=== PATIENT | female | born 2005 | race Caucasian/White ===

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

== ENCOUNTER 2025-03-23 21:20 | Outpatient (CLI) | payer BC, OTHER ==
[2025-03-23 21:46] LABS: Appearance,Urine Cloudy (Clear); Bacteria,Urine Few /hpf; Bilirubin,Urine Negative (Negative); Blood,Urine Negative (Negative); Color,Urine Colorless; Glucose,Urine (UA) Negative (Negative); Ketones,Urine Negative (Negative); Leukocyte Esterase,Urine Small (Negative); Nitrite,Urine Negative (Negative); PH, Urine 6.5 (5.0-8.0); Protein,Urine Negative (Negative); RBC,Urine 1 /hpf (0-5); Specific Gravity,Urine 1.009 (1.001-1.035); Squamous Epithelial Cell,Urine 1 /hpf (0-4); Urobilinogen,Urine <2.0 mg/dL (<2.0); WBC,Urine 3 /hpf (0-5)
[2025-03-23 22:39] VITALS: BP 113/57; PULSE 86; RESP 16
--- NOTE | 2025-03-28 11:26 | P.MSEPDOC ---
Presenting Problems - Arrival Data Date of Arrival on Unit: 03/23/25 Time of Arrival on Unit: 21:20 Mode of Transport: Wheelchair - Complaint OB-Reason for Admission/Chief Complaint: Pain Comment: Pt presents wto triage with c/o cramping and tightening for the past week but increasing today. Also c/o pelvic pressure 9/10 when she feels the cramping. Pt states she feels the cramping a few times an hour. Medical History - Information : 1 Para: 0 Term: 0 : 0 Abortions: Spontaneous or Elective: 0 Number of Living Children: 0 - Gestational Age Gestational Age by BERTIN (wks/days): 33 Weeks and 3 Days Review of Systems - Review of Systems Constitutional: No problems Breast: No problems ENT: No problems Cardiovascular: No problems Respiratory: No problems Gastrointestinal: No problems Genitourinary: No problems Musculoskeletal: No problems Neurological: No problems Skin: No problems Vital Signs - Pulse Pulse Oximetery Pulse Rate: 86 Pulse Assessment Method: Automatic Cuff - Respirations Respiratory Rate: 16 Oxygen Delivery Method: Room Air - Blood Pressure Right Arm Blood Pressure: 113/57 Blood Pressure Mean: 75 Medical Screen Scoring - Assessment - Baby A Baseline FHR: 135 Heart Rate - NICHD Category: Category I (Normal) NST: Reactive Physician Notification - Physician Notified Physician Notified Date: 03/23/25 Physician Notified Time: 21:44 Physician: colten New Order Received: Yes - Notification Comment Comment: Spoke with Dr. Herman, Pt [address] weeks [address] Small. Presents with cramping and pelvic pain for a week that has increased today. NST reactive, no cx traced but states she has felt a few since arrived here.UA was sent. Order to check cervix while awaiting UA results. Dr. Painter in unit. Reviewed tracing, discussed SVE, pt feeling cramping 8-10 min apart, no cx palpated. Reviewed UA results. Orders recieved to d/c pt home. She has an appoin tment next friday 03/30, states it is reasonable for the pt to try and move appointment up to this week if possible Maternal Triage Index - Maternal Triage Index Presenting for scheduled procedure w/no complaint: No - Stat/Priority 1 Stat Priority 1: No - Urgent/Priority 2 Urgent Priority 2: No - Prompt/Priority 3 Prompt Priority 3: Yes Criteria Met for Priority 3: Pt presents wto triage with c/o cramping and tightening for the past week but increasing today. Also c/o pelvic pressure 9/10 when she feels the cramping. Pt states she feels the cramping a few times an hour. Disposition - Disposition OB Disposition: Discharge to home Discharge Date: 03/23/25 Discharge Time: 22:30 I agree with the RN Medical Screening Exam: Yes Physician's MSE Comment: I have neither seen nor examined the patient. Case reviewed; plan agreed upon as documented in EMR&OBIX.: Yes Diagnosis: RELATED CONDITIONS, UNSPECIFIED, THIRD TRIMESTER
== END 2025-03-23 22:30 | disposition home or self-care (01) ==
LOC: FBPOP 21:20
PROVIDERS: ATTEND Obstetrics & Gynecology
DX: O26.893 Other specified pregnancy related conditions, third trimester (principal); Z3A.33 33 weeks gestation of pregnancy
CPT/HCPCS: 59025; 81001; 99213

== ENCOUNTER 2025-04-09 17:28 | Outpatient (CLI) | payer BC, OTHER ==
[2025-04-09 18:52] VITALS: BP 113/59; PULSE 87; RESP 16; TEMP 97.1
--- NOTE | 2025-04-18 11:46 | P.MSEPDOC ---
Presenting Problems - Arrival Data Date of Arrival on Unit: 04/09/25 Time of Arrival on Unit: 18:30 Mode of Transport: Ambulatory - Complaint OB-Reason for Admission/Chief Complaint: Pain Medical History - Information : 1 Para: 0 Number of Living Children: 0 - Gestational Age Gestational Age by BERTIN (wks/days): 35 Weeks and 6 Days Review of Systems - Review of Systems Constitutional: No problems Breast: No problems ENT: No problems Cardiovascular: No problems Respiratory: No problems Gastrointestinal: No problems Genitourinary: No problems Musculoskeletal: No problems Neurological: No problems Skin: No problems Vital Signs - Temperature Temperature: 97.1 F Temperature Source: Axillary - Pulse Right Sitting Pulse Rate: 87 Pulse Assessment Method: Automatic Cuff - Respirations Respiratory Rate: 16 Oxygen Delivery Method: Room Air O2 Sat by Pulse Oximetry: 98 - Blood Pressure Right Arm Sitting Blood Pressure: 113/59 Blood Pressure Mean: 77 Blood Pressure Source: Automatic Cuff Medical Screen Scoring - Assessment - Baby A Baseline FHR: 135 Heart Rate - NICHD Category: Category I (Normal) NST: Reactive Physician Notification - Physician Notified Physician Notified Date: 04/09/25 Physician Notified Time: 18:20 Physician: Dominick Enamorado Order Received: Yes Maternal Triage Index - Maternal Triage Index Presenting for scheduled procedure w/no complaint: No - Stat/Priority 1 Stat Priority 1: No - Urgent/Priority 2 Urgent Priority 2: No - Prompt/Priority 3 Prompt Priority 3: No - Non-Urgent/Priority 4 Non-Urgent Priority 4: Yes Criteria Met for Priority 4: pain Disposition - Disposition OB Disposition: Physician follow up in office Discharge Date: 04/09/25 Discharge Time: 18:30 I agree with the RN Medical Screening Exam: Yes Physician's MSE Comment: I have neither seen nor examined to the patient. Case reviewed; plan agreed upon as documented in EMR&OBIX.: Yes Diagnosis: RELATED CONDITIONS, UNSPECIFIED, THIRD TRIMESTER
== END 2025-04-09 18:40 | disposition home or self-care (01) ==
LOC: FBPOP 17:28
PROVIDERS: ATTEND Obstetrics & Gynecology
DX: O26.893 Other specified pregnancy related conditions, third trimester (principal); R52 Pain, unspecified; Z3A.35 35 weeks gestation of pregnancy
CPT/HCPCS: 59025; 99213

== ENCOUNTER → 2025-04-27 | Outpatient (CLI) | payer BC ==
[2025-04-27 18:28] LABS: Basophils # (A) 0.04 X 10*3/uL (0.00-0.10); Basophils % (A) 0.8 %; Eosinophils % (A) 1.9 %; HCT 42.7 % (37.2-46.3); Lymphocytes # (A) 2.12 X 10*3/uL (0.90-5.00); Lymphocytes % (A) 39.8 %; MCH 24.7 pg (27.0-32.0); MCHC 30.4 g/dL (32.0-37.0); Mean Platelet Volume 10.5 FL (9.5-12.2); Monocytes # (A) 0.46 X 10*3/uL (0.20-1.00); Monocytes % (A) 8.6 %; NRBC Per 100 WBC 0 X 10*3/uL (0.00-0.01); Neutrophils # (A) 2.59 X 10*3/uL (1.80-7.70); Neutrophils % (A) 48.7 %; Platelet Count 274 X 10*3/uL (140-440); RBC 5.27 X 10*6/uL (4.10-5.20); RDW 14.4 % (11.5-14.5); WBC 5.32 X 10*3/uL (4.50-10.00)
[2025-04-27 18:58] LABS: ALT 14 U/L (8-44); AST 15 U/L (13-35); Albumin 4.4 g/dL (3.8-4.9); Albumin/Globulin Ratio 1.83 Ratio (1.60-3.17); Alkaline Phosphatase 115 U/L (41-126); BUN/Creat Ratio 11.75 Ratio (12.00-20.00); Blood Urea Nitrogen 9.4 mg/dL (9.0-27.0); Calcium 9.5 mg/dL (8.7-10.3); Carbon Dioxide 22.9 mmol/L (21.6-31.8); Chloride 107 mmol/L (96-109); Chol/HDL Ratio 4.47 Ratio; Globulin 2.4 g/dL (1.6-3.3); Glucose 87 mg/dL (70-110); LDL Cholesterol,Calculated 160.5 mg/dL (0.0-131.0); Potassium 4.3 mmol/L (3.5-5.5); Sodium 141 mmol/L (135-145); T4, Free (Free Thyroxine) 1.09 ng/dL (0.83-1.43); Total Bilirubin 0.5 mg/dL (0.3-1.2); Total Protein 6.8 g/dL (6.2-8.2)
== END | disposition home or self-care (01) ==
LOC: LABWHC1 14:28
PROVIDERS: ATTEND Internal Medicine Clinical Cardiac Electrophysiology
DX: Z00.00 Encounter for general adult medical examination without abnormal findings (principal); Z13.220 Encounter for screening for lipoid disorders; Z13.29 Encounter for screening for other suspected endocrine disorder; E55.9 Vitamin D deficiency, unspecified
CPT/HCPCS: 36415; 80053; 80061; 82306; 84439; 84443; 85025

== ENCOUNTER 2025-05-03 21:14 | Emergency (ER) | payer BC ==
[2025-05-03 22:06] LABS: Appearance,Urine Cloudy (Clear); Bacteria,Urine Rare /hpf; Bilirubin,Urine Negative (Negative); Blood,Urine Trace (Negative); Color,Urine Light Yellow; Glucose,Urine (UA) Negative (Negative); Hyaline Casts,Urine 1 /lpf (0-2); Ketones,Urine Negative (Negative); Leukocyte Esterase,Urine Large (Negative); Mucus,Urine Rare /hpf; Nitrite,Urine Negative (Negative); PH, Urine 7.5 (5.0-8.0); Protein,Urine Trace (Negative); RBC,Urine 12 /hpf (0-5); Specific Gravity,Urine 1.019 (1.001-1.035); Squamous Epithelial Cell,Urine 16 /hpf (0-4); Urobilinogen,Urine <2.0 mg/dL (<2.0); WBC,Urine 91 /hpf (0-5)
[2025-05-03 22:38] LABS: Basophils # (A) 0.05 10*3/uL (0.00-0.10); Basophils % (A) 0.5 %; Eosinophils # (A) 0.14 10*3/uL (0.04-0.35); Eosinophils % (A) 1.3 %; HCT 41.8 % (37.2-46.3); HGB 13.2 g/dL (12.0-15.0); Lymphocytes # (A) 2.96 10*3/uL (0.90-5.00); Lymphocytes % (A) 27.3 %; MCHC 31.6 g/dL (32.0-37.0); MCV 79.2 fL (80.0-97.0); Mean Platelet Volume 10.2 fL (9.5-12.2); Monocytes # (A) 0.72 10*3/uL (0.20-1.00); Monocytes % (A) 6.6 %; Neutrophils # (A) 6.94 10*3/uL (1.80-7.70); Neutrophils % (A) 64.1 %; Platelet Count 241 10*3/uL (140-440); RBC 5.28 10*6/uL (4.10-5.20); RDW 14.6 % (11.5-14.5); WBC 10.83 10*3/uL (4.50-10.00)
[2025-05-03 22:48] LABS: HCG,Qualitative Serum Not Detected
[2025-05-03 22:50] LABS: ALT 16 U/L (4-34); AST 19 U/L (14-36); African American GFR (CKD) >90 (>60 ml/min/1.73 sqM); Albumin 4.3 g/dL (3.5-5.0); Alkaline Phosphatase 100 U/L (38-126); Amylase 45 U/L (30-110); Anion Gap 13 mmol/L; Blood Urea Nitrogen 7 mg/dL (7-17); Calcium 9.6 mg/dL (8.4-10.2); Carbon Dioxide 23 mmol/L (22-30); Chloride 105 mmol/L (98-107); Glucose 92 mg/dL (74-99); Lipase 55 U/L (23-300); Non-African American GFR(CKD) >90 (>60 ml/min/1.73 sqM); Potassium 3.9 mmol/L (3.5-5.1); Sodium 141 mmol/L (137-145); Total Bilirubin 0.3 mg/dL (0.2-1.3); Total Protein 6.9 g/dL (6.3-8.2)
--- NOTE | 2025-05-03 23:08 | ED ---
Abdominal Pain HPI - General Chief Complaint: Abdominal Pain Stated Complaint: 3 wks pp - abd pain Time Seen by Provider: 05/03/25 23:00 Source: patient, RN notes reviewed Mode of arrival: ambulatory Limitations: no limitations - History of Present Illness Initial Comments: This is a 19-year-old female who presents to the emergency department for abdominal pain, nausea, and vomiting. States that she has had recurrent bouts of epigastric pain with nausea and vomiting. This current episode started yesterday. She is 3 weeks and states that she had similar pain during her , but attributed it to being related at that time. She does also report having loose stools. Denies any fevers or chills. MD Complaint: abdominal pain - Related Data Home Medications Medication Instructions Recorded Confirmed Calcium Carbonate [Tums] 500 mg PO QID PRN 04/10/25 04/10/25 Previous Rx's Medication Instructions Recorded Acetaminophen Tab [Tylenol] 650 mg PO Q6H PRN #30 tab 04/12/25 Ibuprofen [Motrin] 600 mg PO Q6HR PRN #30 tab 04/12/25 Ketorolac [Toradol] 10 mg PO Q6HR PRN #15 tab 05/04/25 Ondansetron Odt [Zofran Odt] 4 mg PO Q8HR PRN #20 tab 05/04/25 Allergies Allergy/AdvReac Type Severity Reaction Status Date / Time No Known Allergies Allergy Verified 05/03/25 21:20 Review of Systems ROS Statement: Those systems with pertinent positive or pertinent negative responses have been documented in the HPI. ROS Other: All systems not noted in ROS Statement are negative. Past Medical History Past Medical History: No Reported History History of Any Multi-Drug Resistant Organisms: None Reported Past Surgical History: Tonsillectomy Past Anesthesia/Blood Transfusion Reactions: No Reported Reaction Past Psychological History: Anxiety, Bipolar, Depression Smoking Status: Never smoker Past Alcohol Use History: None Reported Past Drug Use History: None Reported - Past Family History Father Family Medical History: Neurologic Disorder Additional Family Medical History / Comment(s): pt's paternal grandma had kate's disease General Exam Limitations: no limitations General appearance: alert, in no apparent distress Head exam: Present: atraumatic, normocephalic, normal inspection Respiratory exam: Present: normal lung sounds bilaterally. Absent: respiratory distress, wheezes, rales, rhonchi, stridor Cardiovascular Exam: Present: regular rate, normal rhythm GI/Abdominal exam: Present: soft, tenderness (Epigastric), normal bowel sounds. Absent: distended Neurological exam: Present: alert, oriented X3, CN II-XII intact Psychiatric exam: Present: normal affect, normal mood Skin exam: Present: warm, dry, intact, normal color. Absent: rash Course Vital Signs 05/03/25 21:20 Temperature 98.3 F Pulse Rate 61 Respiratory 18 Rate Blood Pressure 109/77 O2 Sat by Pulse 99 Oximetry Medical Decision Making - Medical Decision Making This is a 19-year-old female who presents to the emergency department for abdominal pain. Was pt. sent in by a medical professional or institution? @ -No Did you speak to anyone other than the patient for history? @ -No Did you review nursing and triage notes? @ -Yes, and I agree, it is accurate with regards to the patient's symptoms. Were old charts reviewed? @ -No Differential Diagnosis? @ -Differential Abdominal Pain Women: Appendicitis, Cholecystitis, diverticulosis, ischemic bowel, pancreatitis, hepatitis, UTI, gastroenteritis, AAA, incarcerated hernia, bowel obstruction, constipation, inflammatory bowel, hepatitis, peptic ulcer disease, splenic infarction, perforated viscus, vulvitis, ovarian torsion, PID, kidney stone, placenta abruption, this is not meant to be an all-inclusive list EKG interpreted by me (3pts min.)? @ -Not obtained X-rays interpreted by me (1pt min.)? @ -Not obtained CT interpreted by me (1pt min.)? @ -Not obtained U/S interpreted by me (1pt. min.)? @ -Gallbladder ultrasound obtained. My interpretation identifies cholelithiasis. What testing was considered but not performed? (CT, X-rays, U/S, labs)? Why? @ -None What meds were considered but not given? Why? @ -None Did you discuss the management of the patient with other professionals? @ -No Did you reconcile home meds? @ -No Was smoking cessation discussed for >3mins.? @ -No Was critical care preformed (if so, how long)? @ -No Were there social determinants of health that impacted care today? How? (Homelessness, low income, unemployed, alcoholism, drug addiction, transportation, low edu. Level, literacy, decrease access to med. care, senior care, rehab)? @ -No Was there de-escalation of care discussed even if they declined? (Discuss DNR or withdrawal of care, Hospice)? @ -No What co-morbidities impacted this encounter? (DM, HTN, Smoking, COPD, CAD, Cancer, CVA, Hep., AIDS, mental health diagnosis, sleep apnea, morbid obesity)? @ -None Was patient admitted / discharged? @ -Discharged. Lab work demonstrates mild leukocytosis with a white blood cell count of 10.83. Urinalysis is somewhat suggestive of infection, but also contaminated. Urine sent for culture. Gallbladder ultrasound obtained demonstrating cholelithiasis without signs of acute cholecystitis. She had a borderline common bile duct, however she had no elevation in LFTs to suggest obstruction. When the patient was brought back to the examination room her symptoms had essentially resolved and she did not require any medication. Advised that symptoms likely related to biliary colic. Information for follow- up with general surgery provided. Toradol and Zofran prescribed for further symptomatic management. She was also advised to follow a bland and low-fat diet for the meantime to reduce the risk of symptom recurrence. She was not exhibiting any urinary symptoms and will defer treatment for the urine at this time. Urine was sent for culture and she has an appointment with her PCP in the next couple of days and they can follow-up on these results. Patient discharged home in stable condition. Case discussed with ED attending Dr. Ridley. Return precautions reviewed in depth, the patient is instructed to return to the emergency department with any new, worsening, or concerning symptoms. Patient verbalized understanding. Undiagnosed new problem with uncertain prognosis? @ -None Drug Therapy requiring intensive monitoring for toxicity (Heparin, Nitro, Insulin, Cardizem)? @ -None Were any procedures done? @ -None Diagnosis/symptom? @ -Biliary colic, gallstones, abdominal pain Acute, or Chronic, or Acute on Chronic? @ -Acute Uncomplicated (without systemic symptoms) or Complicated (systemic symptoms)? @ -Uncomplicated Side effects of treatment? @ -None Exacerbation, Progression, or Severe Exacerbation] @ -Not applicable Poses a threat to life or bodily function? @ -No - Lab Data Result diagrams: 05/03/25 22:24 05/03/25 22:24 Lab Results 06/22/25 06/22/25 06/22/25 Range/Units 21:42 22:24 22:24 WBC 10.83 H (4.50-10.00) 10*3/uL RBC 5.28 H (4.10-5.20) 10*6/uL Hgb 13.2 (12.0-15.0) g/dL Hct 41.8 (37.2-46.3) % MCV 79.2 L (80.0-97.0) fL MCH 25.0 L (27.0-32.0) pg MCHC 31.6 L (32.0-37.0) g/dL Plt Count 241 (140-440) 10*3/uL MPV 10.2 (9.5-12.2) fL Immature Gran % (Auto) 0.2 % Neutrophils % 64.1 % Lymphocytes % 27.3 % Monocytes % 6.6 % Eosinophils % 1.3 % Basophils % 0.5 % Immature Gran # 0.02 (0.00-0.04) 10*3/uL Neutrophils # 6.94 (1.80-7.70) 10*3/uL Lymphocytes # 2.96 (0.90-5.00) 10*3/uL Monocytes # 0.72 (0.20-1.00) 10*3/uL Eosinophils # 0.14 (0.04-0.35) 10*3/uL Basophils # 0.05 (0.00-0.10) 10*3/uL Sodium 141 (137-145) mmol/L Potassium 3.9 (3.5-5.1) mmol/L Chloride 105 (98-107) mmol/L Carbon Dioxide 23 (22-30) mmol/L Anion Gap 13 mmol/L BUN 7 (7-17) mg/dL Creatinine 0.65 (0.52-1.04) mg/dL Est GFR (CKD-EPI)AfAm >90 (>60 ml/min/1.73 sqM) Est GFR (CKD-EPI)NonAf >90 (>60 ml/min/1.73 sqM) Glucose 92 (74-99) mg/dL Plasma Lactic Acid Patrice (0.7-2.0) mmol/L Calcium 9.6 (8.4-10.2) mg/dL Total Bilirubin 0.3 (0.2-1.3) mg/dL AST 19 (14-36) U/L ALT 16 (4-34) U/L Alkaline Phosphatase 100 (38-126) U/L Total Protein 6.9 (6.3-8.2) g/dL Albumin 4.3 (3.5-5.0) g/dL Amylase 45 (30-110) U/L Lipase 55 (23-300) U/L HCG, Qual Not Detected Urine Color Light Yellow Urine Appearance Cloudy H (Clear) Urine pH 7.5 (5.0-8.0) Ur Specific [place] 1.019 (1.001-1.035) Urine Protein Trace H (Negative) Urine Glucose (UA) Negative (Negative) Urine Ketones Negative (Negative) Urine Blood Trace H (Negative) Urine Nitrite Negative (Negative) Urine Bilirubin Negative (Negative) Urine Urobilinogen <2.0 (<2.0) mg/dL Ur Leukocyte Esterase Large H (Negative) Urine RBC 12 H (0-5) /hpf Urine WBC 91 H (0-5) /hpf Ur Squamous Epith Cells 16 H (0-4) /hpf Urine Bacteria Rare H (None) /hpf Hyaline Casts 1 (0-2) /lpf Urine Mucus Rare H (None) /hpf 06/22/25 Range/Units 22:24 WBC (4.50-10.00) 10*3/uL RBC (4.10-5.20) 10*6/uL Hgb (12.0-15.0) g/dL Hct (37.2-46.3) % MCV (80.0-97.0) fL MCH (27.0-32.0) pg MCHC (32.0-37.0) g/dL Plt Count (140-440) 10*3/uL MPV (9.5-12.2) fL Immature Gran % (Auto) % Neutrophils % % Lymphocytes % % Monocytes % % Eosinophils % % Basophils % % Immature Gran # (0.00-0.04) 10*3/uL Neutrophils # (1.80-7.70) 10*3/uL Lymphocytes # (0.90-5.00) 10*3/uL Monocytes # (0.20-1.00) 10*3/uL Eosinophils # (0.04-0.35) 10*3/uL Basophils # (0.00-0.10) 10*3/uL Sodium (137-145) mmol/L Potassium (3.5-5.1) mmol/L Chloride (98-107) mmol/L Carbon Dioxide (22-30) mmol/L Anion Gap mmol/L BUN (7-17) mg/dL Creatinine (0.52-1.04) mg/dL Est GFR (CKD-EPI)AfAm (>60 ml/min/1.73 sqM) Est GFR (CKD-EPI)NonAf (>60 ml/min/1.73 sqM) Glucose (74-99) mg/dL Plasma Lactic Acid Patrice 1.4 (0.7-2.0) mmol/L Calcium (8.4-10.2) mg/dL Total Bilirubin (0.2-1.3) mg/dL AST (14-36) U/L ALT (4-34) U/L Alkaline Phosphatase (38-126) U/L Total Protein (6.3-8.2) g/dL Albumin (3.5-5.0) g/dL Amylase (30-110) U/L Lipase (23-300) U/L HCG, Qual Urine Color Urine Appearance (Clear) Urine pH (5.0-8.0) Ur Specific [place] (1.001-1.035) Urine Protein (Negative) Urine Glucose (UA) (Negative) Urine Ketones (Negative) Urine Blood (Negative) Urine Nitrite (Negative) Urine Bilirubin (Negative) Urine Urobilinogen (<2.0) mg/dL Ur Leukocyte Esterase (Negative) Urine RBC (0-5) /hpf Urine WBC (0-5) /hpf Ur Squamous Epith Cells (0-4) /hpf Urine Bacteria (None) /hpf Hyaline Casts (0-2) /lpf Urine Mucus (None) /hpf - Radiology Data Radiology results: report reviewed, image reviewed Disposition Clinical Impression: Abdominal pain, Biliary colic, Gallstones Disposition: HOME SELF-CARE Instructions (If sedation given, give patient instructions): Biliary Colic (ED), Gallstones (ED) Additional Instructions: Return to the emergency department with any new, worsening, or concerning symptoms. Take the Toradol with Tylenol as needed for pain relief. If you choose to take the Toradol, do not take any other anti-inflammatories such as ibuprofen, take one or the other. Take the Zofran up to every 8 hours as needed for nausea and vomiting. Contact the general surgery office this morning. Let them know that you were seen in the emergency department for abdominal pain and found to have gallstones. They will schedule you for a follow-up appointment. Follow a bland and low-fat diet for the meantime to reduce the risk of symptoms recurring. Prescriptions: Ketorolac [Toradol] 10 mg PO Q6HR PRN #15 tab PRN Reason: Pain Ondansetron Odt [Zofran Odt] 4 mg PO Q8HR PRN #20 tab PRN Reason: Nausea And Vomiting Is patient prescribed a controlled substance at d/c from ED?: No Referrals: Sami Balderas MD [Primary Care Provider] - 1-2 days Fabian Cramer DO [Medical Doctor] - 1-2 days Time of Disposition: 01:15
--- NOTE | 2025-05-03 23:29 | US ---
EXAM: US Abdomen Limited, Gallbladder CLINICAL HISTORY: ITS.REASON US Reason: Epigastric pain TECHNIQUE: Real-time ultrasound of the right upper quadrant with image documentation. COMPARISON: No relevant prior studies available. FINDINGS: Liver: Liver measures 16.6 cm. Gallbladder: Cholelithiasis. No gallbladder wall thickening or Zamudio's sign to suggest cholecystitis. Common bile duct: Borderline dilated common bile duct measuring 6 mm. Pancreas: Unremarkable as visualized. Right kidney: Right kidney measures 12.2 cm. No hydronephrosis. IMPRESSION: 1. Cholelithiasis. No gallbladder wall thickening or Zamudio's sign to suggest cholecystitis. 2. Borderline dilated common bile duct measuring 6 mm. If there is laboratory evidence of biliary obstruction, consider MRCP.
[2025-05-04] MEDS: KETOROLAC 15 MG/ML 1 ML VIAL IVP STA (01:27)
[2025-05-04] MEDS: SODIUM CHLORIDE 0.9% 1,000 ML IV ONE (01:28)
[2025-05-04] MEDS: ONDANSETRON 4 MG/2 ML VIAL IVP STA (01:28)
[2025-05-04] MEDS: ONDANSETRON 4 MG ODT STARTER PACK 2 TAB BTL PO STA (01:35)
[2025-05-04] MEDS: ACET/COD 300 MG/30 MG STARTER PACK 6 TAB BTL PO STA (01:35)
[2025-05-04 01:42] VITALS: BP 132/85; PULSE 57; RESP 16; TEMP 97.7
== END 2025-05-04 01:37 | disposition home or self-care (01) ==
LOC: EC 21:14
DX: O26.891 Other specified pregnancy related conditions, first trimester (principal); K80.70 Calculus of gallbladder and bile duct without cholecystitis without obstruction; Z3A.01 Less than 8 weeks gestation of pregnancy
CPT/HCPCS: 36415; 76705; 80053; 81001; 82150; 83605; 83690; 84703; 85025; 87086; 99284

== ENCOUNTER 2025-05-07 17:01 | Observation (INO) | payer BC, OTHER ==
--- NOTE | 2025-05-07 18:35 | ED ---
Abdominal Pain HPI - General Source: patient, RN notes reviewed Mode of arrival: ambulatory Limitations: no limitations <Prabha Dowling - Last Filed: 05/07/25 18:33> - General Source: patient, RN notes reviewed Mode of arrival: ambulatory Limitations: no limitations - History of Present Illness MD Complaint: abdominal pain Onset/Timin -: days(s) Location: RUQ Radiation: none Migration to: no migration Severity scale (1-10): 6 Quality: stabbing Consistency: intermittent Worsens With: eating Associated Symptoms: nausea, vomiting, anorexia Treatments Prior to Arrival: prescription analgesics <Andrew Mckinney - Last Filed: 05/08/25 19:06> - General Chief Complaint: Abdominal Pain Stated Complaint: Abd pain Time Seen by Provider: 05/07/25 18:33 - History of Present Illness Initial Comments: Quick 84 female presenting for epigastric pain. States she was diagnosed with gallstones on Sunday and has consultation with surgeon next Sunday however reports flareups of pain are worsening. She called the surgeon's office who told her to come to the ER. (Prabha Dowling) This is a 19-year-old female presenting for ongoing epigastric/RUQ pain (04/21) x 6 days. Patient was seen in this ER on 05/03/2025 and diagnosed with gallstones prior to discharge with Toradol for ongoing pain management with minimal relief. Patient states flareup lasts anywhere from 30 minutes to 1.5 hours, with patient stating she had a syncopal episode last night during a flareup. Patient states she has a surgical consultation with Dr. Cramer on 05/12/2025 but states the daily flareup she is having is preventing her from caring for her 1-month-old . Patient states she is afraid a flareup at the wrong time can have negative consequences for her baby. Patient endorses associated anorexia and headache. Patient states pain occasionally worsens after eating. Patient states she is not currently breast-feeding. Denies fever, chills, chest pain, dyspnea, urinary symptoms. (Andrew Mckinney) - Related Data Previous Rx's Medication Instructions Recorded Ketorolac [Toradol] 10 mg PO Q6HR PRN #15 tab 05/04/25 Ondansetron Odt [Zofran Odt] 4 mg PO Q8HR PRN #20 tab 05/04/25 Allergies Allergy/AdvReac Type Severity Reaction Status Date / Time No Known Allergies Allergy Verified 05/08/25 11:33 Review of Systems ROS Other: All systems not noted in ROS Statement are negative. <Prabha Dowling - Last Filed: 05/07/25 18:33> ROS Other: All systems not noted in ROS Statement are negative. <Andrew Mckinney - Last Filed: 05/08/25 19:06> ROS Statement: Those systems with pertinent positive or pertinent negative responses have been documented in the HPI. Past Medical History Past Medical History: No Reported History History of Any Multi-Drug Resistant Organisms: None Reported Past Surgical History: Tonsillectomy Additional Past Surgical History / Comment(s): Vag delivery 04/11/25 Past Anesthesia/Blood Transfusion Reactions: No Reported Reaction Past Psychological History: Anxiety, Bipolar, Depression Smoking Status: Never smoker Past Alcohol Use History: None Reported Past Drug Use History: None Reported - Past Family History Father Family Medical History: Neurologic Disorder Additional Family Medical History / Comment(s): pt's paternal grandma had kate's disease <Prabha Dowling - Last Filed: 05/07/25 18:33> General Exam Limitations: no limitations <Prabha Dowling - Last Filed: 05/07/25 18:33> Limitations: no limitations General appearance: alert, in no apparent distress Head exam: Present: atraumatic, normocephalic, normal inspection Eye exam: Present: normal appearance, PERRL, EOMI. Absent: scleral icterus, conjunctival injection, periorbital swelling ENT exam: Present: normal exam, mucous membranes moist Neck exam: Present: normal inspection. Absent: tenderness, meningismus, lymphadenopathy Respiratory exam: Present: normal lung sounds bilaterally. Absent: respiratory distress, wheezes, rales, rhonchi, stridor Cardiovascular Exam: Present: regular rate, normal rhythm, normal heart sounds. Absent: systolic murmur, diastolic murmur, rubs, gallop, clicks GI/Abdominal exam: Present: soft, tenderness (Positive RUQ TTP with voluntary guarding. Positive Zamudio sign), guarding, normal bowel sounds. Absent: distended, rebound, rigid Extremities exam: Present: normal inspection, full ROM, normal capillary refill. Absent: tenderness, pedal edema, joint swelling, calf tenderness Back exam: Present: normal inspection Neurological exam: Present: alert, oriented X3, CN II-XII intact Psychiatric exam: Present: normal affect, normal mood Skin exam: Present: warm, dry, intact, normal color. Absent: rash <Andrew Mckinney - Last Filed: 05/08/25 19:06> - General Exam Comments Initial Comments: Visual Physical Exam Vital signs reviewed General: Well-appearing, nontoxic, no acute distress. Head: Normocephalic, atraumatic Eyes: PERRLA, EOMI ENT: Airway patent Chest: Nonlabored breathing Skin: No visual rash, normal skin tone Neuro: Alert and oriented 3 Musculoskeletal: No gross abnormalities (Prabha Dowling) Course Vital Signs 05/07/25 05/07/25 05/08/25 18:27 21:39 00:15 Temperature 98 F 98.3 F 97.9 F Pulse Rate 54 L 54 L 60 Respiratory 18 19 18 Rate Blood Pressure 133/83 133/79 121/76 O2 Sat by Pulse 99 98 98 Oximetry Medical Decision Making <Prabha Dowling - Last Filed: 05/07/25 18:33> - Lab Data Result diagrams: 05/07/25 18:45 05/07/25 18:45 <Andrew Mckinney - Last Filed: 05/08/25 19:06> - Medical Decision Making I completed the quick note portion of this chart signed Prabha Dowling PA-C (Prabha Dowling) Was pt. sent in by a medical professional or institution (JOSE Gooden, PASTRYCOOK'S ASSISTANT, urgent care, hospital, or [facility]...) When possible be specific @ -No Did you speak to anyone other than the patient for history (EMS, parent, family, police, friend...)? What history was obtained from this source @ -No Did you review nursing and triage notes (agree or disagree)? Why? @ -I reviewed and agree with nursing and triage notes Were old charts reviewed (outside hosp., previous admission, EMS record, old EKG, old radiological studies, urgent care reports/EKG's, [facility] records)? Report findings @ -Reviewed patient's ER visit on 05/03/2025 where initial discovery of Kristen lithiasis occurred. Differential Diagnosis (chest pain, altered mental status, abdominal pain women, abdominal pain men, vaginal bleeding, weakness, fever, dyspnea, syncope, headache, dizziness, GI bleed, back pain, seizure, CVA, palpatations, mental health, musculoskeletal)? @ -Differential Abdominal Pain Women: Appendicitis, Cholecystitis, diverticulosis, ischemic bowel, pancreatitis, hepatitis, UTI, gastroenteritis, AAA, incarcerated hernia, bowel obstruction, constipation, inflammatory bowel, hepatitis, peptic ulcer disease, splenic infarction, perforated viscus, vulvitis, ovarian torsion, PID, kidney stone, placenta abruption, this is not meant to be an all-inclusive list EKG interpreted by me (3pts min.). @ -Not done X-rays interpreted by me (1pt min.). @ -None done CT interpreted by me (1pt min.). @ -None done U/S interpreted by me (1pt. min.). @ -Gallbladder ultrasound shows cholelithiasis within nondistended gallbladder and common bile duct WNL with positive Zamudio sign indicative of acute cholecystitis. What testing was considered but not performed or refused? (CT, X-rays, U/S, labs)? Why? @ -None What meds were considered but not given or refused? Why? @ -None Did you discuss the management of the patient with other professionals (professionals i.e. , PA, PASTRYCOOK'S ASSISTANT, lab, RT, psych nurse, social services director, behavioral therapist, teacher, radio electronics officer, assistant case manager)? Give summary @ -Spoke to Dr. Benitez for patient mission for cholecystectomy Was smoking cessation discussed for >3mins.? @ -No Was critical care preformed (if so, how long)? @ -No Were there social determinants of health that impacted care today? How? (Homelessness, low income, unemployed, alcoholism, drug addiction, transportation, low edu. Level, literacy, decrease access to med. care, [facility], rehab)? @ -No Was there de-escalation of care discussed even if they declined (Discuss DNR or withdrawal of care, Hospice)? DNR status @ -No What co-morbidities impacted this encounter? (DM, HTN, Smoking, COPD, CAD, Cancer, CVA, ARF, Chemo, Hep., AIDS, mental health diagnosis, sleep apnea, morbid obesity)? @ -None Was patient admitted / discharged? Hospital course, mention meds given and route, prescriptions, significant lab abnormalities, going to OR and other pertinent info. @ -Patient initially provided IV normal saline, Dilaudid, Toradol and p.o. Tylenol. Lab work generally unremarkable with WBC 7.19 and contaminated UA with negative urine hCG. Normal kidney function, LFTs and lipase. Gallbladder ultrasound shows cholelithiasis within nondistended gallbladder and common bile duct WNL with positive Zamudio sign indicative of acute cholecystitis. Patient provided additional IV Dilaudid and Toradol for ongoing pain. Spoke to Dr. Benitez for patient admission for cholecystectomy. Discussed patient with Dr. Abdul. Undiagnosed new problem with uncertain prognosis? @ -No Drug Therapy requiring intensive monitoring for toxicity (Heparin, Nitro, Insulin, Cardizem)? @ -No Were any procedures done? @ -No Diagnosis/symptom? @ -Cholecystitis Acute, or Chronic, or Acute on Chronic? @ -Acute Uncomplicated (without systemic symptoms) or Complicated (systemic symptoms)? @ -Uncomplicated Side effects of treatment? @ -No Exacerbation, Progression, or Severe Exacerbation? @ -Exacerbation Poses a threat to life or bodily function? How? (Chest pain, USA, MD, pneumonia, PE, COPD, DKA, ARF, appy, cholecystitis, CVA, Diverticulitis, Homicidal, Suicidal, threat to staff... and all critical care pts) @ -Cholecystitis (Andrew Mckinney) - Lab Data Lab Results 05/07/25 05/07/25 05/07/25 Range/Units 11:15 18:45 18:45 WBC 7.19 (4.50-10.00) 10*3/uL RBC 5.03 (4.10-5.20) 10*6/uL Hgb 12.7 (12.0-15.0) g/dL Hct 39.8 (37.2-46.3) % MCV 79.1 L (80.0-97.0) fL MCH 25.2 L (27.0-32.0) pg MCHC 31.9 L (32.0-37.0) g/dL Plt Count 220 (140-440) 10*3/uL MPV 10.1 (9.5-12.2) fL Immature Gran % (Auto) 0 % Neutrophils % 48.1 % Lymphocytes % 41.6 % Monocytes % 7.5 % Eosinophils % 2.2 % Basophils % 0.6 % Immature Gran # 0.00 (0.00-0.04) 10*3/uL Neutrophils # 3.46 (1.80-7.70) 10*3/uL Lymphocytes # 2.99 (0.90-5.00) 10*3/uL Monocytes # 0.54 (0.20-1.00) 10*3/uL Eosinophils # 0.16 (0.04-0.35) 10*3/uL Basophils # 0.04 (0.00-0.10) 10*3/uL Sodium 138 (137-145) mmol/L Potassium 4.1 (3.5-5.1) mmol/L Chloride 104 (98-107) mmol/L Carbon Dioxide 24 (22-30) mmol/L Anion Gap 10 mmol/L BUN 6 L (7-17) mg/dL Creatinine 0.59 (0.52-1.04) mg/dL Est GFR (CKD-EPI)AfAm >90 (>60 ml/min/1.73 sqM) Est GFR (CKD-EPI)NonAf >90 (>60 ml/min/1.73 sqM) Glucose 84 (74-99) mg/dL Plasma Lactic Acid Patrice (0.7-2.0) mmol/L Calcium 9.9 (8.4-10.2) mg/dL Total Bilirubin 0.5 (0.2-1.3) mg/dL AST 19 (14-36) U/L ALT 19 (4-34) U/L Alkaline Phosphatase 100 (38-126) U/L Total Protein 6.9 (6.3-8.2) g/dL Albumin 4.4 (3.5-5.0) g/dL Amylase 41 (30-110) U/L Lipase 37 (23-300) U/L Urine Color Urine Appearance (Clear) Urine pH (5.0-8.0) Ur Specific [place] (1.001-1.035) Urine Protein (Negative) Urine Glucose (UA) (Negative) Urine Ketones (Negative) Urine Blood (Negative) Urine Nitrite (Negative) Urine Bilirubin (Negative) Urine Urobilinogen (<2.0) mg/dL Ur Leukocyte Esterase (Negative) Urine RBC (0-5) /hpf Urine WBC (0-5) /hpf Ur Squamous Epith Cells (0-4) /hpf Urine Bacteria (None) /hpf Urine Mucus (None) /hpf Urine HCG, Qual Not Detected (Not Detectd) 05/07/25 05/07/25 Range/Units 18:45 20:58 WBC (4.50-10.00) 10*3/uL RBC (4.10-5.20) 10*6/uL Hgb (12.0-15.0) g/dL Hct (37.2-46.3) % MCV (80.0-97.0) fL MCH (27.0-32.0) pg MCHC (32.0-37.0) g/dL Plt Count (140-440) 10*3/uL MPV (9.5-12.2) fL Immature Gran % (Auto) % Neutrophils % % Lymphocytes % % Monocytes % % Eosinophils % % Basophils % % Immature Gran # (0.00-0.04) 10*3/uL Neutrophils # (1.80-7.70) 10*3/uL Lymphocytes # (0.90-5.00) 10*3/uL Monocytes # (0.20-1.00) 10*3/uL Eosinophils # (0.04-0.35) 10*3/uL Basophils # (0.00-0.10) 10*3/uL Sodium (137-145) mmol/L Potassium (3.5-5.1) mmol/L Chloride (98-107) mmol/L Carbon Dioxide (22-30) mmol/L Anion Gap mmol/L BUN (7-17) mg/dL Creatinine (0.52-1.04) mg/dL Est GFR (CKD-EPI)AfAm (>60 ml/min/1.73 sqM) Est GFR (CKD-EPI)NonAf (>60 ml/min/1.73 sqM) Glucose (74-99) mg/dL Plasma Lactic Acid Patrice 0.8 (0.7-2.0) mmol/L Calcium (8.4-10.2) mg/dL Total Bilirubin (0.2-1.3) mg/dL AST (14-36) U/L ALT (4-34) U/L Alkaline Phosphatase (38-126) U/L Total Protein (6.3-8.2) g/dL Albumin (3.5-5.0) g/dL Amylase (30-110) U/L Lipase (23-300) U/L Urine Color Light Yellow Urine Appearance Cloudy H (Clear) Urine pH 6.0 (5.0-8.0) Ur Specific [place] 1.015 (1.001-1.035) Urine Protein Trace H (Negative) Urine Glucose (UA) Negative (Negative) Urine Ketones Negative (Negative) Urine Blood Negative (Negative) Urine Nitrite Negative (Negative) Urine Bilirubin Negative (Negative) Urine Urobilinogen <2.0 (<2.0) mg/dL Ur Leukocyte Esterase Large H (Negative) Urine RBC 6 H (0-5) /hpf Urine WBC 66 H (0-5) /hpf Ur Squamous Epith Cells 20 H (0-4) /hpf Urine Bacteria Rare H (None) /hpf Urine Mucus Occasional H (None) /hpf Urine HCG, Qual (Not Detectd) Disposition <Prabha Dowling - Last Filed: 05/07/25 18:33> Time of Disposition: 22:10 Decision Date: 05/07/25 Decision Time: 22:10 <Andrew Mckinney - Last Filed: 05/08/25 19:06> Clinical Impression: Cholecystitis Disposition: ADMITTED IP TO THIS HOSP Condition: Fair
[2025-05-07 19:04] LABS: Basophils # (A) 0.04 10*3/uL (0.00-0.10); Basophils % (A) 0.6 %; Eosinophils # (A) 0.16 10*3/uL (0.04-0.35); Eosinophils % (A) 2.2 %; HCT 39.8 % (37.2-46.3); HGB 12.7 g/dL (12.0-15.0); Lymphocytes # (A) 2.99 10*3/uL (0.90-5.00); Lymphocytes % (A) 41.6 %; MCH 25.2 pg (27.0-32.0); MCHC 31.9 g/dL (32.0-37.0); MCV 79.1 fL (80.0-97.0); Mean Platelet Volume 10.1 fL (9.5-12.2); Monocytes # (A) 0.54 10*3/uL (0.20-1.00); Monocytes % (A) 7.5 %; Neutrophils # (A) 3.46 10*3/uL (1.80-7.70); Neutrophils % (A) 48.1 %; Platelet Count 220 10*3/uL (140-440); RBC 5.03 10*6/uL (4.10-5.20); RDW 14.8 % (11.5-14.5); WBC 7.19 10*3/uL (4.50-10.00)
[2025-05-07 19:24] LABS: ALT 19 U/L (4-34); AST 19 U/L (14-36); African American GFR (CKD) >90 (>60 ml/min/1.73 sqM); Albumin 4.4 g/dL (3.5-5.0); Alkaline Phosphatase 100 U/L (38-126); Amylase 41 U/L (30-110); Anion Gap 10 mmol/L; Blood Urea Nitrogen 6 mg/dL (7-17); Calcium 9.9 mg/dL (8.4-10.2); Carbon Dioxide 24 mmol/L (22-30); Chloride 104 mmol/L (98-107); Glucose 84 mg/dL (74-99); Lipase 37 U/L (23-300); Non-African American GFR(CKD) >90 (>60 ml/min/1.73 sqM); Potassium 4.1 mmol/L (3.5-5.1); Sodium 138 mmol/L (137-145); Total Bilirubin 0.5 mg/dL (0.2-1.3); Total Protein 6.9 g/dL (6.3-8.2)
--- NOTE | 2025-05-07 19:49 | US ---
EXAMINATION TYPE: US gallbladder DATE OF EXAM: 05/07/2025 COMPARISON: 05/03/25 CLINICAL INDICATION: Female, 19 years old with history of epigastric pain, hx gallstones; gallstones. pt has surgical consult next week TECHNIQUE: Grayscale and color Doppler imaging of the right upper quadrant was performed. FINDINGS: EXAM MEASUREMENTS: Liver Length: 14.5 cm Gallbladder Wall: 0.3 cm CBD: 0.4 cm Right Kidney: 11.0 x 4.3 x 4.4 cm COMMERCIAL DIVER NOTES: Pancreas: visualized portions appear slightly echogenic Liver: wnl Gallbladder: multiple small echogenic foci layering within. wall upper limits of normal Evidence for sonographic Zamudio's sign: mp CBD: wnl Right Kidney: wnl IMPRESSION: Cholelithiasis within a nondistended gallbladder. Common bile duct is within normal limits in this pa tient with a reported positive Zamudio sign. Findings are equivocal for acute cholecystitis. Correlate with clinical evaluation. A nuclear medicine hepatobiliary scan can provide more definitive diagnosi s. [facility], , 05/07/2025 7:46 PM
[2025-05-07 21:32] LABS: Appearance,Urine Cloudy (Clear); Bacteria,Urine Rare /hpf; Bilirubin,Urine Negative (Negative); Blood,Urine Negative (Negative); Color,Urine Light Yellow; Glucose,Urine (UA) Negative (Negative); Ketones,Urine Negative (Negative); Leukocyte Esterase,Urine Large (Negative); Mucus,Urine Occasional /hpf; Nitrite,Urine Negative (Negative); Protein,Urine Trace (Negative); RBC,Urine 6 /hpf (0-5); Specific Gravity,Urine 1.015 (1.001-1.035); Squamous Epithelial Cell,Urine 20 /hpf (0-4); Urobilinogen,Urine <2.0 mg/dL (<2.0); WBC,Urine 66 /hpf (0-5)
[2025-05-07] MEDS: SODIUM CHLORIDE 0.9% 1,000 ML IV STA (21:48)
[2025-05-07] MEDS: ACETAMINOPHEN TAB 500 MG TAB PO STA (21:53)
[2025-05-07] MEDS: KETOROLAC 15 MG/ML 1 ML VIAL IVP STA (21:54)
[2025-05-07] MEDS ORDERED: ONDANSETRON 4 MG/2 ML VIAL IVP PRN (22:24)
[2025-05-07] MEDS ORDERED: KETOROLAC 15 MG/ML 1 ML VIAL IVP PRN (22:24)
[2025-05-07] MEDS ORDERED: NALOXONE 0.4 MG/ML 1 ML VIAL IV PRN (22:24)
[2025-05-07] MEDS ORDERED: ACETAMINOPHEN IV (For NPO) 1,000 MG in EMPTY BAG 1 BAG IVPB PRN (22:25)
[2025-05-07] MEDS: HYDROmorphone 1 MG/ML 1 ML SYRINGE IVP STA (22:33)
[2025-05-07] MEDS: SODIUM CHLORIDE 0.9% 1,000 ML IV SCH (22:37)
[2025-05-08] MEDS: HYDROmorphone 1 MG/ML 1 ML SYRINGE IVP PRN (01:21)
[2025-05-08] MEDS: metroNIDAZOLE-NS PMX 500 MG in SALINE 1 100ML.BAG IVPB STA (01:21)
[2025-05-08] MEDS ORDERED: INDOCYANINE GREEN 25 MG VIAL IV STA (08:09)
[2025-05-08] MEDS: metroNIDAZOLE-NS PMX 500 MG in SALINE 1 100ML.BAG IVPB SCH (10:41)
--- NOTE | 2025-05-08 12:51 | P.GSHP ---
History of Present Illness H&P Date: 05/08/25 CHIEF COMPLAINT: RUQ abdominal pain HISTORY OF PRESENT ILLNESS: This is a 19-year-old female who presented to the hospital with complaints of right upper quadrant abdominal pain that radiates across the abdomen into the left upper quadrant and into the back. Patient has a 1-month-old baby at home with a vaginal delivery. She reports that she was having these pains intermittently during her . Sunday she came into the ER because she was having severe right upper quadrant pain. She notices the pain sometimes does come on after eating. The pain was severe enough that causing her shortness of breath. She was diagnosed with gallstones and was to follow-up with the surgeon outpatient. Patient reports that the pain became so severe again last night that she could not wait for that appointment next week and came to the ER to be evaluated. Ultrasound shows gallstones with positive Zamudio sign and correlate for acute cholecystitis. She has been started on antibiotics and admitted to surgical service. PAST MEDICAL HISTORY: See list. PAST SURGICAL HISTORY: See list. MEDICATIONS: See list. ALLERGIES: See list. SOCIAL HISTORY: No illicit drug use. REVIEW OF SYSTEMS: CONSTITUTIONAL: Denies fever or chills. HEENT: Denies blurred vision, vision changes, or eye pain. Denies hemoptysis ENDOCRINE: Denies heat or cold intolerance. CARDIOVASCULAR: Denies chest pain or pressure. RESPIRATORY: No shortness of breath. GASTROINTESTINAL: please refer to HPI NEURO: Denies history of seizures. PSYCH: No depression or suicidal ideation HEMATOLOGIC: Denies bleeding disorders. LYMPHATIC: The patient denies any lumps and bumps around the neck. GENITOURINARY: Denies any blood in urine or increased urinary frequency. MUSCULOSKELETAL: Denies myalgias. Denies joint swelling. Denies decreased range of motion beyond patients baseline. SKIN: Denies pruitis. Denies rash. PHYSICAL EXAM: VITAL SIGNS: Reviewed GENERAL: Well-developed in no acute distress. HEENT: No sclera icterus. Extraocular movements grossly intact. Moist buccal mucosa. Head is atraumatic, normocephalic. Hears conversational speech. No nasal drainage. NECK: Supple without lymphadenopathy. CHEST: Non-labored respirations and equal bilateral excursions. CARDIOVASCULAR: Palpable 2+ radial pulses. ABDOMEN: Soft. Nondistended. Tenderness with palpation to the right upper quadrant MUSCULOSKELETAL: No clubbing or cyanosis. NEUROLOGIC: No focal or lateralizing signs. Cranial nerves II through XII grossly intact. PSYCH: Appropriate affect. Alert and oriented to person, place and time. SKIN: Well perfused. Good skin turgor. LABORATORY DATA: WBC 7.19 Hgb 12.7 platelets 220 Sodium 138 potassium 4.1 creatinine 0.59 lactic acid 0.8 LFTs normal Urine hCG not detected IMAGING: Gallbladder ultrasound reports cholelithiasis within a nondistended gallbladder. Common bile duct within normal limits. Positive Zamudio sign. Findings are equivocal for acute cholecystitis. ASSESSMENT: 1. Acute cholecystitis PLAN: - Patient scheduled for Robotic cholecystectomy today with Dr. Benitez - Continue IV antibiotics - Clear liquid diet until lunch and then n.p.o. - Continue pain management Physician Police Dispatcher note has been reviewed by physician. Signing provider agrees with the documented findings, assessment, and plan of care. Please see additional documentation per MD CHIEF COMPLAINT: Acute cholecystitis HISTORY OF PRESENT ILLNESS: The patient is a 19 year old female whois over 1 month presents with right upper quadrant abdominal pain and epigastric pain. Patient reports severe pain and has been scheduled to see a surgeon for cholecystectomy. Due to the severity of pain, patient presented to the emergency room. PAST MEDICAL HISTORY: See list and reviewed PAST SURGICAL HISTORY: See list and reviewed MEDICATIONS: See list and reviewed ALLERGIES: See list and reviewed SOCIAL HISTORY: See list and reviewed FAMILY HISTORY: See list and reviewed REVIEW OF ORGAN SYSTEMS: CONSTITUTIONAL: No fevers or chills. Obesity, class I, BMI 32.8. EYES: Denies any trouble with vision. No glasses. HEENT: No difficulties with hearing. No nosebleeds. No difficulty swallowing. RESPIRATORY: Denies pneumonia. Denies any troubles with breathing or dyspnea on exertion. CARDIOVASCULAR: Denies any chest pain, palpitations, or recent heart attacks. GASTROINTESTINAL: Denies fatty food intolerance. Denies change in bowel habits and gas bloat. GENITOURINARY: Denies any blood in urine or increased urinary frequency. NEUROLOGICAL: Denies any numbness or tingling along the distal extremities. No seizure disorders or headaches. MUSCULOSKELETAL: Denies any back pain, stiffness or joint arthritis. SKIN: No current skin cancer. No rash. PSYCHIATRIC: Denies current depression or suicidal thoughts. ENDOCRINE: Denies current thyroid disorders. Denies any blood sugar glucose intolerance. HEME/LYMPHATIC: Denies any lumps and bumps around the neck. No recent deep venous thrombosis. ALLERGY/IMMUNOLOGY: No immunoglobulin therapy. No immune deficiencies. BREAST: Denies current breast lumps, pain or nipple discharge. PHYSICAL EXAM: VITALS: Reviewed CONSTITUTIONAL: Well developed and in no acute distress. EYES: Conjuctivae without sclera icterus. Extraocular movements grossly intact. HEAD, EARS, NOSE, THROAT: Moist buccal mucosa. Head is atraumatic, normocephalic. Hears conversational speech. No nasal drainage. NECK: Supple. No JV distention. No thyroidomegaly. RESPIRATORY: Non-labored respirations and equal bilateral excursions. No gross wheezes. CARDIOVASCULAR: Palpable 2+ radial pulses. ABDOMEN: Obese, tender epigastrium right upper quadrant. LYMPH: No neck lymphadenopathy. MUSCULOSKELETAL: No clubbing cyanosis or edema SKIN: Warm and well perfused with good skin turgor. NEUROLOGIC: Cranial nerves II through XII grossly intact. No focal or lateralizing signs. PSYCH: Appropriate affect. Alert and oriented to person, place and time. Displays appropriate insight. CLINCAL LABS: Reviewed. WBC within normals. LFTs within normal limits. IMAGING: Independently reviewed. Ultrasound of the gallbladder independent reviewed demonstrates thickened gallbladder wall with sludge. This is my independent interpretation. RADIOLOGY: Report reviewed. Ultrasound demonstrates cholecystitis. RECORDS: previous old records reviewed. Ultrasound report from 05/03/2025 demonstrates gallstones. Common bile duct mildly dilated. ASSESSMENT: 1. Acute cholecystitis due to gallstones. 2. , 1 month PLAN: 1. IV fluid hydration. 2. May have clear liquid diet in the interim. 3. Recommend antibiotic 4. Do recommend cholecystectomy ADVANCE DIRECTIVE: CODE STATUS in chart Thank you for this kind consultation. Dictation was produced using [employer].comation software. Please excuse any g rammatical, word or spelling errors. Past Medical History Past Medical History: No Reported History Additional Past Medical History / Comment(s): anxiety History of Any Multi-Drug Resistant Organisms: None Reported Past Surgical History: Tonsillectomy Additional Past Surgical History / Comment(s): Vag delivery 04/11/25, colonoscopy Past Anesthesia/Blood Transfusion Reactions: No Reported Reaction Past Psychological History: Anxiety, Bipolar, Depression Smoking Status: Never smoker, Vaper Past Alcohol Use History: None Reported Past Drug Use History: None Reported - Past Family History Father Family Medical History: Neurologic Disorder Additional Family Medical History / Comment(s): pt's paternal grandma had kate's disease Medications and Allergies Home Medications Medication Instructions Recorded Confirmed Type Ketorolac [Toradol] 10 mg PO Q6HR PRN #15 tab 05/04/25 05/08/25 Rx Ondansetron Odt [Zofran ODT] 4 mg PO Q8HR PRN #20 tab 05/04/25 05/08/25 Rx Acetaminophen Tab [Tylenol Tab] 1,000 mg PO Q6HR PRN #30 tablet 05/09/25 Rx Simethicone 40 mg/0.6 ml Drops 40 mg PO QID ml 05/09/25 Rx [Mylicon Drops] Simethicone [Gas-X] 125 mg PO AC-TID PRN #20 capsule 05/09/25 Rx Allergies Allergy/AdvReac Type Severity Reaction Status Date / Time No Known Allergies Allergy Verified 05/08/25 11:33 Surgical - Exam Vital Signs Temp Pulse Resp BP Pulse Ox 98 F 54 L 18 133/83 99 05/07/25 18:27 05/07/25 18:27 05/07/25 18:27 05/07/25 18:27 05/07/25 18:27 Results - Labs 05/07/25 18:45 05/07/25 18:45 Abnormal Lab Results - Last 24 Hours (Table) 05/07/25 05/07/25 05/07/25 Range/Units 18:45 18:45 20:58 MCV 79.1 L (80.0-97.0) fL MCH 25.2 L (27.0-32.0) pg MCHC 31.9 L (32.0-37.0) g/dL BUN 6 L (7-17) mg/dL Urine Appearance Cloudy H (Clear) Urine Protein Trace H (Negative) Ur Leukocyte Esterase Large H (Negative) Urine RBC 6 H (0-5) /hpf Urine WBC 66 H (0-5) /hpf Ur Squamous Epith Cells 20 H (0-4) /hpf Urine Bacteria Rare H (None) /hpf Urine Mucus Occasional H (None) /hpf Diabetes panel 05/07/25 Range/Units 18:45 Sodium 138 (137-145) mmol/L Potassium 4.1 (3.5-5.1) mmol/L Chloride 104 (98-107) mmol/L Carbon Dioxide 24 (22-30) mmol/L BUN 6 L (7-17) mg/dL Creatinine 0.59 (0.52-1.04) mg/dL Glucose 84 (74-99) mg/dL Calcium 9.9 (8.4-10.2) mg/dL AST 19 (14-36) U/L ALT 19 (4-34) U/L Alkaline Phosphatase 100 (38-126) U/L Total Protein 6.9 (6.3-8.2) g/dL Albumin 4.4 (3.5-5.0) g/dL Calcium panel 05/07/25 Range/Units 18:45 Calcium 9.9 (8.4-10.2) mg/dL Albumin 4.4 (3.5-5.0) g/dL Pituitary panel 05/07/25 Range/Units 18:45 Sodium 138 (137-145) mmol/L Potassium 4.1 (3.5-5.1) mmol/L Chloride 104 (98-107) mmol/L Carbon Dioxide 24 (22-30) mmol/L BUN 6 L (7-17) mg/dL Creatinine 0.59 (0.52-1.04) mg/dL Glucose 84 (74-99) mg/dL Calcium 9.9 (8.4-10.2) mg/dL Adrenal panel 05/07/25 Range/Units 18:45 Sodium 138 (137-145) mmol/L Potassium 4.1 (3.5-5.1) mmol/L Chloride 104 (98-107) mmol/L Carbon Dioxide 24 (22-30) mmol/L BUN 6 L (7-17) mg/dL Creatinine 0.59 (0.52-1.04) mg/dL Glucose 84 (74-99) mg/dL Calcium 9.9 (8.4-10.2) mg/dL Total Bilirubin 0.5 (0.2-1.3) mg/dL AST 19 (14-36) U/L ALT 19 (4-34) U/L Alkaline Phosphatase 100 (38-126) U/L Total Protein 6.9 (6.3-8.2) g/dL Albumin 4.4 (3.5-5.0) g/dL
--- NOTE | 2025-05-08 15:09 | P.HPADDEND ---
H&P Addendum H&P Addendum Date: 05/08/25 Patient seen and evaluated. Benefits of breast robotic cholecystectomy described.
[2025-05-08] MEDS: SCOPOLAMINE 1 MG/72 HR PATCH TRANSDERM STA (16:49)
[2025-05-08] MEDS ORDERED: GLYCOPYRROLATE 0.2 MG/ML 2 ML VIAL ONE (22:50)
[2025-05-08] MEDS ORDERED: ONDANSETRON 4 MG/2 ML VIAL ONE (22:50)
[2025-05-08] MEDS ORDERED: NEOSTIGMINE 1 MG/ML 10 ML VIAL ONE (22:50)
[2025-05-08] MEDS ORDERED: MIDAZOLAM 2 MG/2 ML VIAL ONE (22:50)
[2025-05-08] MEDS ORDERED: LIDOCAINE 1% INJ 10MG/ML (20 ML MDV) ONE (22:50)
[2025-05-08] MEDS ORDERED: fentaNYL (PF) 50 MCG/ML 2 ML AMP ONE (22:50)
[2025-05-08] MEDS ORDERED: PROPOFOL 10 MG/ML 20 ML VIAL IV ONE (22:50)
[2025-05-08] MEDS ORDERED: SUCCINYLCHOLINE CHLORIDE 200 MG/10 ML VIAL IV ONE (22:50)
[2025-05-08] MEDS ORDERED: KETOROLAC 15 MG/ML 1 ML VIAL ONE (22:50)
[2025-05-08] MEDS ORDERED: ROCURONIUM 10 MG/ML (5 ML VIAL) IV ONE (22:50)
[2025-05-08] MEDS: SODIUM CHLORIDE 0.9% 100 ML with ceFAZolin 2,000 MG IV ONE (22:53)
[2025-05-08] MEDS: LACTATED RINGERS 1,000 ML IV ONE (22:53)
[2025-05-08] MEDS: LIDOCAINE 1%-EPI 1:100,000 20 ML VIAL SQ ONE (23:08)
[2025-05-09] MEDS: ACETAMINOPHEN IV (For NPO) 1,000 MG in EMPTY BAG 1 BAG IVPB SCH (01:07)
[2025-05-09] MEDS: KETOROLAC 15 MG/ML 1 ML VIAL IVP SCH (01:08)
[2025-05-09] MEDS: ONDANSETRON 4 MG/2 ML VIAL IVP SCH (01:08)
[2025-05-09] MEDS: SIMETHICONE 40 MG/0.6 ML DROPS 2,000 MG/30 ML BOTTLE PO SCH (01:09)
[2025-05-09 09:04] VITALS: BP 114/68; PULSE 47; RESP 18; TEMP 99.1
--- NOTE | 2025-05-09 09:27 | P.PN ---
Subjective Progress Note Date: 05/09/25 CHIEF COMPLAINT: Cholecystitis HISTORY OF PRESENT ILLNESS: The patient is a 19-year-old female status post cholecystectomy, 05/08/2025 for acute cholecystitis. This morning, she is tolerating regular diet. Pain is tolerable. She has a scopolamine patch. Her aunt is at bedside. ROS: No reports of nausea and vomiting. No bowel movements. No fevers or chills. No new chest pain. No productive sputum PHYSICAL EXAM: VITAL SIGNS: Reviewed CONSTITUTIONAL: Well developed and in no acute distress. EYES: Conjuctivae without sclera icterus. Extraocular movements grossly intact. HEAD, EARS, NOSE, THROAT: Moist buccal mucosa. Head is atraumatic, normocephalic. Hears conversational speech. No nasal drainage. RESPIRATORY: Non-labored respirations and equal bilateral excursions. CARDIOVASCULAR: Palpable 2+ radial pulses. ABDOMEN: Incisions clean dry intact. No infection. MUSCULOSKELETAL: No gross deformity of the lower extremities noted. No clubbing. No cyanosis. SKIN: Good skin turgor. Well perfused. NEUROLOGIC: Cranial nerves II through XII grossly intact. No focal or laterali zing signs. PSYCH: Appropriate affect. Alert and oriented to person, place and time. CLINICAL LABS: Reviewed. ASSESSMENT: 1. Acute cholecystitis due to gallstones PLAN: 1. Patient has a 1-month-old baby at home. I have asked her to avoid breast- feeding for 24 hours. She reports she does not breast-feed. 2. Nonnarcotic pain medication described. Patient asked to continue scopolamine patch for total of 3 days to prevent nausea. 3. Lifting restriction for 10 pounds for 2 weeks described. Dictation was produced using [employer] dictation software. Please excuse any grammatical, word or spelling errors. Objective - Vital Signs Vital signs: Vital Signs Temp 99.1 F 05/09/25 07:11 Pulse 47 L 05/09/25 07:11 Resp 18 05/09/25 07:11 BP 114/68 05/09/25 07:11 Pulse Ox 96 05/09/25 07:11 FiO2 Intake & Output 05/08/25 05/09/25 05/09/25 18:59 06:59 18:59 Intake Total 500 Output Total 5 Balance 495 Weight 89.358 kg Intake: IV 500 Output: Estimated Blood Loss 5 Other: # Voids 2 3 - Labs CBC & Chem 7: 05/07/25 18:45 05/07/25 18:45
--- NOTE | 2025-05-24 20:44 | P.OP ---
Date of Procedure: 05/08/25 Description of Procedure: SURGEON: HANSEL LIZAMA MD PREOPERATIVE DIAGNOSES: 1. Acute cholecystitis due to symptomatic gallstone 2. Obesity due to class excess calories, BMI 32.8 3. Obesity class I 4. Generalized anxiety disorder 5. Depressive disorder 6. Bipolar disorder POSTOPERATIVE DIAGNOSES: 1. Acute cholecystitis due to symptomatic gallstone 2. Obesity due to class excess calories, BMI 32.8 3. Obesity class I 4. Generalized anxiety disorder 5. Depressive disorder 6. Bipolar disorder 7. Pericholecystic additional OPERATION: Robotic-assisted da Salvador Xi laparoscopic lysis of adhesions Robotic-assisted da Salvador Xi laparoscopic cholecystectomy, multiport with FIREFL Y ESTIMATED BLOOD LOSS: 5 mL. SPECIMENS REMOVED: Gallbladder. COMPLICATIONS: None. OPERATIVE FINDINGS: 1. Moderate scarring over entire gallbladder with peritoneal adhesions, pericholecystic with features of chronic cholecystitis 2. Multiple gallstones INDICATIONS: The patient is a 19-year-old female who presents with acute cholecystitis due to symptomatic gallstones. She is over 1 month . Robotic assisted laparoscopic approach was described. Benefits and risks of the procedure including but not limited to bleeding, infection, injury to the biliary tree was described. Informed consent was obtained. DESCRIPTION OF PROCEDURE: Patient was brought to the operating room, placed in supine position. After general induction, the abdomen had been prepped and draped in standard sterile fashion. The robotic da Salvador XI system was primed. After a timeout protocol was performed, the patient had been prepped and draped in standard sterile fashion. The patient was injected with indocyanine green. A 5 mm 0 degrees laparoscopic trocar entry was performed along the left upper quadrant. The abdomen insufflated to 15 mmHg pressure which was tolerated well. Diagnostic laparoscopy demonstrated no injury to bowel viscera or mesentery. The liver surface was unremarkable. Next, two 8 mm robotic ports were placed along the right upper abdomen. The camera 8-mm port was maintained along the epigastrium. Another 8 mm port was placed along the left upper abdominal wall after exchanging the 5 mm port. Please note that the ports were placed at least 10 to 15 cm away from the target anatomy of the gallbladder. The robot was docked along the left lateral abdomen. The patient was repositioned in reverse Trendelenburg position. Using a grasper for arm 1, a grasper for arm 4, including hook cautery for arm 3, the robotic system was docked and primed as described. Instruments were interchanged by the golf player assistant including hook cautery, Bovie cautery and clip appliers. I had sat at the console. The gallbladder was scarred with peritoneal adhesions. Lysis of adhesions was performed to free the gallbladder from the surrounding tissues. Next attention was brought to the infundibulum and cystic structures. The infundibulum and cystic duct were dissected free from surrounding tissues. The cystic duct was isolated. FIREFLY was used to identify the cystic artery and cystic structures. A critical view of safety was obtained. Large PLASTIC clips were used throughout the entire case. Using a clip spanish moss picker, 3 clips were placed at the junction of the infundibulum and cystic duct. The cystic duct was divided between clips. Next, the cystic artery was similarly cauterized. Electro-Bovie cautery was used to remove the gallbladder from the hepatic fossa. Hemostasis was checked and found to be adequate. The robot was undocked. I re-scrubbed into the case. Using a 10 mm Endo Catch bag via the left upper quadrant incision, the specimen was removed from the abdominal cavity. All pneumoperitoneum instruments were evacuated from the abdominal cavity. The incisions were reapproximated using 4-0 Monocryl in an interrupted subcuticular fashion. Fascial defects were less than 8 mm in size. Please note along the trocar sites, local anesthetic was placed as a field block prior to insertion of all instruments. Liquid glue was applied to the skin. At the end of the procedure needle, sponge, and instrument count had been verified correct by the senior service technician. The patient was transferred to postanesthesia care unit in stable condition. Intraoperative films were shared with the patient's family.
--- NOTE | 2025-05-24 20:53 | P.DS ---
Providers Date of admission: 05/07/25 23:21 Expected date of discharge: 05/09/25 Attending physician: Lianne Benitez Primary care physician: Stated None Hospital Course: POSTOPERATIVE DIAGNOSES: 1. Acute cholecystitis due to symptomatic gallstone 2. Obesity due to class excess calories, BMI 32.8 3. Obesity class I 4. Generalized anxiety disorder 5. Depressive disorder 6. Bipolar disorder 7. Pericholecystic additional COURSE: The patient is a 19-year-old female who presents with acute cholecystitis due to symptomatic gallstones. She is over 1 month . Robotic cholecystectomy described. Prior to discharge, abdominal pain had improved. Patient was tolerating diet. Procedures: OPERATION: Robotic-assisted da Salvador Xi laparoscopic lysis of adhesions Robotic-assisted da Salvador Xi laparoscopic cholecystectomy, multiport with FIREFLY ESTIMATED BLOOD LOSS: 5 mL. SPECIMENS REMOVED: Gallbladder. COMPLICATIONS: None. OPERATIVE FINDINGS: 1. Moderate scarring over entire gallbladder with peritoneal adhesions, pericholecystic with features of chronic cholecystitis 2. Multiple gallstones Patient Condition at Discharge: Good Plan - Discharge Summary Discharge Rx Participant: Yes New Discharge Prescriptions: New Simethicone [Gas-X] 125 mg PO AC-TID PRN #20 capsule PRN Reason: Pain Acetaminophen Tab [Tylenol Tab] 1,000 mg PO Q6HR PRN #30 tablet PRN Reason: Pain Simethicone 40 mg/0.6 ml Drops [Mylicon Drops] 40 mg PO QID ml Continue Ondansetron Odt [Zofran ODT] 4 mg PO Q8HR PRN #20 tab PRN Reason: Nausea And Vomiting Ketorolac [Toradol] 10 mg PO Q6HR PRN #15 tab PRN Reason: Pain Discharge Medication List Ketorolac [Toradol] 10 mg PO Q6HR PRN #15 tab 05/04/25 [Rx] Ondansetron Odt [Zofran ODT] 4 mg PO Q8HR PRN #20 tab 05/04/25 [Rx] Acetaminophen Tab [Tylenol Tab] 1,000 mg PO Q6HR PRN #30 tablet 05/09/25 [Rx] Simethicone 40 mg/0.6 ml Drops [Mylicon Drops] 40 mg PO QID ml 05/09/25 [Rx] Simethicone [Gas-X] 125 mg PO AC-TID PRN #20 capsule 05/09/25 [Rx] Follow up Appointment(s)/Referral(s): Lianne Benitez MD [STAFF PHYSICIAN] - 05/12/25 6:50 pm (Telehealth) None,Stated [Primary Care Provider] - 1-2 days Patient Instructions/Handouts: Laparoscopic Cholecystectomy (DC) Activity/Diet/Wound Care/Special Instructions: TELEHEALTH - DR WILL CALL YOU BETWEEN 9 am to 8 pm NO LONG DRIVES OR AIRPLANE RIDES OVER 60 MINUTES FOR THE NEXT 2 WEEKS, 05/22/25, DUE TO HIGH RISK OF PULMONARY EMBOLISM/DVTs May drive in 24 to 48 hrs Recommend low-fat diet for the next 2 days. No lifting over 10 pounds in 2 weeks until 05/22/25, May shower. No bath tub soaks for two weeks until 05/22/25, Diet as tolerated. Use Tylenol, simethicone and ibuprofen or Aleve scheduled for the next 24-48 hours for best pain relief. Use ice along incisions for today to prevent swelling. Discharge Disposition: HOME SELF-CARE
== END 2025-05-09 12:49 | disposition home or self-care (01) ==
LOC: EC 17:01 → INTOOBSV 23:21 → 4SSUR 23:21
PROVIDERS: ADMIT Surgery Plastic and Reconstructive Surgery; ATTEND Surgery Plastic and Reconstructive Surgery
DX: K80.12 Calculus of gallbladder with acute and chronic cholecystitis without obstruction (principal); E66.811 Obesity, class 1; F41.1 Generalized anxiety disorder; Z68.32 Body mass index [BMI] 32.0-32.9, adult
CPT/HCPCS: 47563; S2900; 36415; 76705; 80053; 81001; 81025; 82150; 83605; 83690; 85025; 88304; 96361; 96374; 96375; 99285